=== PATIENT | female | born 1990 | race Caucasian/White ===

== ENCOUNTER 2018-04-22 15:16 | Emergency (ER) | payer OTHER ==
[~2018-04-22] VITALS: Ht 162.6 cm; Wt 66.2 kg
[2018-04-22 15:21] VITALS: BP 108/64
== END 2018-04-22 15:41 ==
LOC: ER 15:18
DX: Z04.6 Encounter for general psychiatric examination, requested by authority (principal); F41.9 Anxiety disorder, unspecified; D64.9 Anemia, unspecified; F17.200 Nicotine dependence, unspecified, uncomplicated
CPT/HCPCS: 82962; 99283; A4606; Z7610

== ENCOUNTER 2022-07-14 23:58 | Emergency (ER) | payer OTHER ==
[~2022-07-14] VITALS: Ht 165.1 cm; Wt 99.8 kg
[2022-07-15] MEDS ORDERED: OLANZAPINE 10 MG VIAL IM ONE ×2 (00:08→00:30)
--- NOTE | 2022-07-15 00:16 | NUR ---
PT WAS BIB [facility] AND [employer] FOR PSYCHIATRIC EVALUATION. PT APPEARS INTOXICATED, VERBALLY RESPONSIVE AND DENIED SI/ HI ON TRIAGE HOWEVER SHE IS GOING TO BE PLACED ON [address]150 HOLD BY [employer]. COVID SWAB OBTAINED. UNABLE TO OBTAIN URINE SAMPLE AT THIS TIME. SI/HI PRECAUTION OBSERVED. [employer] AT BED SIDE . WILL CONT TO MONITOR
--- NOTE | 2022-07-15 00:33 | NUR ---
PT NOT ABLE TO GIVE URINE SAMPLE AT THIS TIME; WILL TRY AGAIN LATER
[2022-07-15 00:39] LABS: BASOPHILS # (AUTO) 0.1 K/uL (0.0-0.2); BASOPHILS % (AUTO) 0.5 % (0.0-2.0); HEMATOCRIT 40 % (33-45); HEMOGLOBIN 13.3 g/dL (11.5-14.8); LYMPHOCYTES # (AUTO) 4.2 K/uL (0.8-4.8); LYMPHOCYTES % (AUTO) 39.7 % (20.0-44.0); MEAN CORPUSCULAR HGB CONC 34 g/dl (31.0-36.0); MEAN CORPUSCULAR VOLUME 92 fL (82-100); MONOCYTES # (AUTO) 0.6 K/uL (0.1-1.30); MONOCYTES % (AUTO) 5.8 % (2.0-12.0); NEUTROPHILS # (AUTO) 5.3 K/uL (1.8-8.9); PLATELET COUNT (AUTO) 329 K/uL (150-450); RED BLOOD CELL COUNT(AUTO) 4.33 MIL/uL (4.0-5.2); WHITE BLOOD COUNT (AUTO) 10.6 K/uL (4.3-11.0)
--- NOTE | 2022-07-15 00:53 | NUR ---
URINE COLLECTED AND SENT TO LAB
[2022-07-15 00:59] LABS: ALBUMIN 3.7 g/dL (3.4-5.0); BILIRUBIN,DIRECT 0.1 mg/dL (0.0-0.2); BILIRUBIN,TOTAL 0.1 mg/dL (0.2-1.0); CALCIUM, SERUM 8.5 mg/dL (8.5-10.1); CREATININE 0.9 mg/dL (0.6-1.3); POTASSIUM 3.7 mmol/L (3.5-5.1)
[2022-07-15 01:55] LABS: BILIRUBIN,URINE NEGATIVE (NEGATIVE); COLOR,URINE YELLOW (YELLOW); LEUKOCYTE ESTERASE ,URINE TRACE (NEGATIVE); NITRITE, URINE NEGATIVE (NEGATIVE); PROTEIN,URINE NEGATIVE (NEGATIVE); UGLUCOSE NEGATIVE (NEGATIVE); UROBILINOGEN,URINE 0.2 EU/dL (0.2)
[2022-07-15 02:12] LABS: BACTERIA,URINE Rare /HPF (None Seen); RBC,URINE 0-2 /HPF (0-2); SQUAMOUS EPITHELIAL CELL,UR Few /HPF (None Seen)
--- NOTE | 2022-07-15 02:36 | NUR ---
[facility] CALLED FOR EVAL
--- NOTE | 2022-07-15 04:06 | NUR ---
[facility] CRISIS TEAM AT PT'S BEDSIDE FOR EVAL. PT IS TOO DROWSY TO BE EVALUATED. WILL REASSESS PT AND HAVE CRISIS TEAM REEVALUATE PT LATER.
[2022-07-15 05:55] VITALS: BP 118/77
--- NOTE | 2022-07-15 05:55 | NUR ---
Patient discharged to home in stable condition. Written and verbal after care instructions given. Patient verbalizes understanding of instruction.
== END 2022-07-15 05:55 | disposition home or self-care (01) ==
LOC: ER 07-15 00:07
DX: F22 Delusional disorders (principal); F31.9 Bipolar disorder, unspecified; Z20.822 Contact with and (suspected) exposure to COVID-19
CPT/HCPCS: 99285; 96372; 85025; 80048; 87086; 80076; 84703; 81001; 36415; 87426; 80143; 80320; 80307; J3490; C9803; G0480